=== PATIENT | female | born 1965 | race Two or more races ===

== ENCOUNTER 2022-04-01 09:26 | Outpatient (CLI) | payer BC | END 2022-04-01 09:41 | disposition home or self-care (01) | LOC: LAB 09:26 | PROVIDERS: ATTEND Internal Medicine | DX: E11.65 Type 2 diabetes mellitus with hyperglycemia (principal); M15.0 Primary generalized (osteo)arthritis; D64.9 Anemia, unspecified; E11.9 Type 2 diabetes mellitus without complications; E78.00 Pure hypercholesterolemia, unspecified; N39.0 Urinary tract infection, site not specified; E03.8 Other specified hypothyroidism; Z12.11 Encounter for screening for malignant neoplasm of colon; R19.5 Other fecal abnormalities; E55.9 Vitamin D deficiency, unspecified ==

== ENCOUNTER 2022-04-01 11:22 | Outpatient (CLI) | payer BC | END 2022-04-01 11:23 | disposition home or self-care (01) | LOC: NUCLEAR 11:22 | PROVIDERS: ATTEND Internal Medicine | DX: M15.0 Primary generalized (osteo)arthritis (principal); Z87.310 Personal history of (healed) osteoporosis fracture; E11.65 Type 2 diabetes mellitus with hyperglycemia ==

== ENCOUNTER 2022-04-01 14:27 | Outpatient (CLI) | payer BC | END 2022-04-01 14:29 | disposition home or self-care (01) | LOC: RAD 14:27 | PROVIDERS: ATTEND Internal Medicine | DX: M15.0 Primary generalized (osteo)arthritis (principal) ==

== ENCOUNTER 2022-09-02 09:35 | Outpatient (CLI) | payer BC | END 2022-09-02 09:37 | disposition home or self-care (01) | LOC: MAMO-SONO 09:35 | PROVIDERS: ATTEND Obstetrics & Gynecology Gynecology | DX: N60.11 Diffuse cystic mastopathy of right breast (principal); N60.19 Diffuse cystic mastopathy of unspecified breast; N63.0 Unspecified lump in unspecified breast; Z12.31 Encounter for screening mammogram for malignant neoplasm of breast; N64.4 Mastodynia ==